=== PATIENT | female | born 1950 | race Caucasian/White ===

== ENCOUNTER → 2017-03-05 | Outpatient (CLI) | payer MEDICAID ==
[2017-03-05 21:19] LABS: CALCIUM 10.3 mg/dL (8.4-10.5)
[2017-03-05 21:20] LABS: CARBON DIOXIDE 39.8 mmol/L (20.0-32)
== END | disposition home or self-care (01) ==
LOC: LAB 18:13
PROVIDERS: ATTEND Family Medicine
DX: N18.9 Chronic kidney disease, unspecified (principal)
CPT/HCPCS: 36415; 80048

== ENCOUNTER → 2017-03-08 | Outpatient (CLI) | payer MEDICAID ==
[2017-03-08 18:20] LABS: MEAN CORP VOLUME 96.8 fL (78-100); MEAN PLATELET VOLUME 11.8 fL (7.8-11.0); RED CELL DISTRIBUTION WIDTH 13.5 % (11.5-14.5); WHITE BLOOD CELL 9.7 10^3/uL (4.5-11.0)
[2017-03-08 18:41] LABS: CALCIUM 10.5 mg/dL (8.4-10.5); CARBON DIOXIDE 32.9 mmol/L (20.0-32)
== END | disposition home or self-care (01) ==
LOC: LAB 16:06
PROVIDERS: ATTEND Family Medicine
DX: R82.90 Unspecified abnormal findings in urine (principal)
CPT/HCPCS: 36415; 80053; 85027